=== PATIENT | female | born 1990 ===

== ENCOUNTER 2016-12-15 16:57 | Emergency (ER) | payer MEDICARE ==
[2016-12-15 17:16] VITALS: BP 159/106
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
[2016-12-15 18:32] LABS: Basophils % (Auto) 0.5 % (0.0-1.8); Eosinophils % (Auto) 0.6 % (0.0-4.3); Hematocrit 44.6 % (30.3-42.9); Hemoglobin 14.3 gm/dl (10.1-14.3); Mean Corpuscular HGB Conc 32 % (30-34); Mean Corpuscular Volume 80 fl (79-97); Platelet Count 205 K/mm3 (140-440); Red Blood Count 5.58 M/mm3 (3.65-5.03); Red Cell Distribution Width 13.8 % (13.2-15.2); White Blood Count 10.7 K/mm3 (4.5-11.0)
[2016-12-15 18:33] LABS: Mean Corpuscular Hemoglobin 26 pg (28-32)
[2016-12-15 18:35] LABS: Bilirubin,Urine NEG (Negative); Blood,Urine LG (Negative); Ketones,Urine 20 mg/dL (Negative); Leukocyte Esterase,Urine NEG (Negative); Mucus,Urine FEW /HPF; Nitrite,Urine NEG (Negative); Protein,Urine <15 mg/dL mg/dL (Negative); Urobilinogen,Urine < 2.0 mg/dL (<2.0); WBC,Urine < 1.0 /HPF (0.0-6.0)
[2016-12-15 18:54] LABS: Amylase 28 units/L (27-131); Blood Urea Nitrogen 9 mg/dL (7-17); Carbon Dioxide 27 mmol/L (22-30); Chloride 97.7 mmol/L (98-107); Glucose 412 mg/dL (65-100); Lipase 27 units/L (13-60); Potassium 4.4 mmol/L (3.6-5.0); Sodium 136 mmol/L (137-145)
[2016-12-15 19:10] LABS: Anion Gap 16 mmol/L
--- NOTE | 2016-12-17 05:26 | ED Elopement Review ---
ED Pt Elopement review - Results review Lab results: Laboratory Tests 12/15/16 12/15/16 12/15/16 17:13 17:59 18:22 WBC 10.7 RBC 5.58 H Hgb 14.3 Hct 44.6 H MCV 80 MCH 26 L MCHC 32 RDW 13.8 Plt Count 205 Lymph % (Auto) 22.1 [place] % (Auto) 4.1 Eos % (Auto) 0.6 Baso % (Auto) 0.5 Lymph # 2.4 [place] # 0.4 Eos # 0.1 Baso # 0.1 Seg Neutrophils % 72.7 H Seg Neutrophils # 7.8 H Sodium Potassium Chloride Carbon Dioxide Anion Gap BUN Creatinine Estimated GFR BUN/Creatinine Ratio Glucose POC Glucose 375 H Calcium Amylase Lipase Urine Color Yellow Urine Turbidity Clear Urine pH 6.0 Ur Specific [place] 1.027 Urine Protein <15 mg/dl Urine Glucose (UA) >=500 Urine Ketones 20 Urine Blood Lg Urine Nitrite Neg Urine Bilirubin Neg Urine Urobilinogen < 2.0 Ur Leukocyte Esterase Neg Urine WBC (Auto) < 1.0 Urine RBC (Auto) 12.0 U Epithel Cells (Auto) 2.0 Urine Mucus Few Urine HCG, Qual Negative 12/15/16 18:22 WBC RBC Hgb Hct MCV MCH MCHC RDW Plt Count Lymph % (Auto) [place] % (Auto) Eos % (Auto) Baso % (Auto) Lymph # [place] # Eos # Baso # Seg Neutrophils % Seg Neutrophils # Sodium 136 L Potassium 4.4 Chloride 97.7 L Carbon Dioxide 27 Anion Gap 16 BUN 9 Creatinine 0.5 L Estimated GFR > 60 BUN/Creatinine Ratio 18.00 Glucose 412 H POC Glucose Calcium 9.0 Amylase 28 Lipase 27 Urine Color Urine Turbidity Urine pH Ur Specific [place] Urine Protein Urine Glucose (UA) Urine Ketones Urine Blood Urine Nitrite Urine Bilirubin Urine Urobilinogen Ur Leukocyte Esterase Urine WBC (Auto) Urine RBC (Auto) U Epithel Cells (Auto) Urine Mucus Urine HCG, Qual - Call Back decision Pt Call Back Decision: Pt to F/U with PMD
== END 2016-12-16 07:20 | disposition left against medical advice (07) ==
LOC: ED 16:57
DX: R10.30 Lower abdominal pain, unspecified (principal); R11.0 Nausea; N93.9 Abnormal uterine and vaginal bleeding, unspecified; Z53.21 Procedure and treatment not carried out due to patient leaving prior to being seen by health care provider
CPT/HCPCS: 36415; 80048; 81001; 81025; 82150; 82962; 83690; 85025